=== PATIENT | female | born 1980 | race Caucasian/White ===

== ENCOUNTER 2018-10-15 23:16 | Emergency (ER) | payer MEDICAID ==
[~2018-10-15] VITALS: Ht 154.9 cm; Wt 70.3 kg
[2018-10-16] MEDS ORDERED: MECLIZINE HCL 25 MG TAB PO ONE (02:45)
[2018-10-16 04:14] VITALS: BP 125/68
== END 2018-10-16 04:29 | disposition home or self-care (01) ==
LOC: ER 23:22
DX: H66.93 Otitis media, unspecified, bilateral (principal); R42 Dizziness and giddiness; J06.9 Acute upper respiratory infection, unspecified; Z88.6 Allergy status to analgesic agent
CPT/HCPCS: 70450; 99284; J8597

== ENCOUNTER 2018-10-17 13:45 | Emergency (ER) | payer MEDICAID ==
[~2018-10-17] VITALS: Ht 157.5 cm; Wt 70.3 kg
[2018-10-17 15:15] VITALS: BP 135/79
[2018-10-17 16:34] LABS: Basophils # (auto) 0 uL; Basophils % (auto) 0.3 % (0.0-2.0); Eosinophils # (auto) 0 uL; Eosinophils % (auto) 0.1 % (0.0-7.0); Hematocrit 41.6 % (36.0-46.0); Hemoglobin 14.1 g/dL (12.2-16.2); Lymphocytes # (auto) 1.9 uL; Lymphocytes % (auto) 21.2 % (10.0-50.0); Mean Corpuscular Hemoglobin 31.7 pg (28.0-32.0); Mean Corpuscular Hgb Conc. 33.9 g/dL (32.0-36.0); Mean Corpuscular Volume 93.4 fL (80.0-100.0); Monocytes # (auto) 0.6 uL; Monocytes % (auto) 6.2 % (0.0-12.0); Neutrophils # (auto) 6.5 uL; Neutrophils % (auto) 72.2 % (37.0-80.0); Platelet Count (auto) 373 10^3/uL (140-450); Red Blood Cells 4.45 10^6/uL (4.0-5.20); Red Cell Distribution Width 12.3 % (11.8-14.3); White Blood Cell 8.9 10^3/uL (4.4-10.8)
[2018-10-17 16:48] LABS: BUN/Creatinine Ratio 8.2; Potassium 3.7 mmol/L (3.5-5.1)
[2018-10-17 16:50] LABS: Bilirubin, Total 0.6 mg/dL (0.2-1.0); Total Protein 7.6 g/dL (6.4-8.2)
== END 2018-10-17 17:56 | disposition home or self-care (01) ==
LOC: ER 13:45
DX: R42 Dizziness and giddiness (principal); Z88.6 Allergy status to analgesic agent
CPT/HCPCS: 36415; 80053; 85025; 93005